=== PATIENT | female | born 1970 | race Hispanic/Latino ===

== ENCOUNTER 2017-11-21 23:57 | Emergency (ER) | payer OTHER ==
[2017-11-22] MEDS ORDERED: ACETAMINOPHEN-CODEINE 300/30MG TAB ONE (01:06)
[2017-11-22] MEDS ORDERED: CEFTRIAXONE SODIUM 1 GM ONE (01:07)
== END 2017-11-22 01:49 | disposition home or self-care (01) ==
LOC: EDH 23:57
DX: K04.7 Periapical abscess without sinus (principal); Z98.890 Other specified postprocedural states
CPT/HCPCS: 96372; 99283; J0696

== ENCOUNTER 2018-05-08 19:50 | Emergency (ER) | payer OTHER ==
[2018-05-08] MEDS ORDERED: KETOROLAC TROMETHAMINE 30MG/ML ONE (20:41)
[2018-05-08] MEDS ORDERED: HYDROCODONE/ACETAMINOPHEN 10/325 MG TAB ONE (20:41)
[2018-05-08] MEDS ORDERED: AMOXICILLIN 500 MG CAPSULE PO ONE (20:41)
== END 2018-05-08 21:23 | disposition home or self-care (01) ==
LOC: EDH 19:50
DX: K02.9 Dental caries, unspecified (principal); R68.84 Jaw pain; Z90.49 Acquired absence of other specified parts of digestive tract; Z98.890 Other specified postprocedural states
CPT/HCPCS: 96372; 99283; J1885

== ENCOUNTER 2018-06-15 17:19 | Emergency (ER) | payer OTHER ==
[2018-06-15] MEDS ORDERED: AMOXICILLIN 500 MG CAPSULE PO ONE (18:16)
[2018-06-15] MEDS ORDERED: HYDROCODONE/ACETAMINOPHEN 10/325 MG TAB ONE (18:17)
== END 2018-06-15 19:24 | disposition home or self-care (01) ==
LOC: EDH 17:19
DX: K04.7 Periapical abscess without sinus (principal); Z90.49 Acquired absence of other specified parts of digestive tract; Z98.890 Other specified postprocedural states

== ENCOUNTER 2018-07-17 02:46 | Emergency (ER) | payer OTHER ==
[2018-07-17] MEDS ORDERED: HYDROCODONE/ACETAMINOPHEN 10/325 MG TAB ONE (02:59)
== END 2018-07-17 03:14 | disposition home or self-care (01) ==
LOC: EDH 02:46
DX: L03.811 Cellulitis of head [any part, except face] (principal); Z90.49 Acquired absence of other specified parts of digestive tract; Z98.890 Other specified postprocedural states